=== PATIENT | female | born 2000 | race Caucasian/White ===

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

== ENCOUNTER 2019-04-07 00:22 | Emergency (ER) | payer OTHER ==
[~2019-04-07] VITALS: Ht 160 cm; Wt 59.9 kg
[2019-04-07 02:00] VITALS: BP 123/69
== END 2019-04-07 02:00 | disposition home or self-care (01) ==
LOC: ED 00:22
DX: R06.02 Shortness of breath (principal); R06.00 Dyspnea, unspecified; Z91.012 Allergy to eggs